=== PATIENT | female | born 1995 | race Two or more races ===

== ENCOUNTER 2016-08-16 11:37 | Emergency (ER) | payer OTHER ==
[~2016-08-16] VITALS: Ht 157.5 cm; Wt 60.0 kg
[~2016-08-16 11:37] MED LIST: ALBU17I INH; Z.0.NO CURRENT MEDS
[2016-08-16 11:42] VITALS: BP 122/75; PULSE 75; RESP 16; TEMP 98.1; O2SAT 98
--- NOTE | 2016-08-16 11:56 | PD ---
HPI Chief Complaint: Related Problem Time Seen by Provider: 11:56 Travel History International Travel<30 days: No Contact w/Intl Traveler<30days: No Traveled to known affect area: No History of Present Illness HPI 21-year-old female with no significant medical history presents to the emergency department for evaluation of lower abdominal cramping. Patient states she has been cramping for the last week or 2, expecting her menstrual cycle however it never came. She took a test yesterday was positive. She has been unable to get into her [employer] for 2 weeks and is concerned about the cramping. She states her last menstrual cycle was June 24, 2016 but it was not normal. She did have some spotting later last month. Denies any recent illnesses, fever, or chills. No constipation. No urinary symptoms. No other symptoms to report. PFSH Past Medical History ADHD: No Asthma: Yes Depression: Yes Cancer: No Cardiovascular Problems: Yes (HEART MURMOR) Diabetes: No Psychiatric: No Migraines: Yes (2 DAYS AGO AND THE WEEK PRIOR) Seizures: No Thyroid Disease: No Ulcer: No ?: LMP: 06/24/16 Social History Alcohol Use: No (RARE) Tobacco Use: Yes Substance Use: No Allergies-Medications (Allergen,Severity, Reaction): Coded Allergies: No Known Allergies (Verified , 08/16/16) Reported Meds & Prescriptions Reported Meds & Active Scripts Active No Active Prescriptions or Reported Medications Review of Systems Except as stated in HPI: all other systems reviewed are Neg Physical Exam Narrative GENERAL: Well-nourished female patient, in no acute distress SKIN: Warm and dry. HEAD: Atraumatic. Normocephalic. EYES: Pupils equal and round. No scleral icterus. No injection or drainage. ENT: No nasal bleeding or discharge. Mucous membranes pink and moist. NECK: Trachea midline. No JVD. CARDIOVASCULAR: Regular rate and rhythm. No murmur appreciated. RESPIRATORY: No accessory muscle use. Clear to auscultation. Breath sounds equal bilaterally. GASTROINTESTINAL: Abdomen soft, nondistended. Mild mid suprapubic tenderness to palpation. Hepatic and splenic margins not palpable. MUSCULOSKELETAL: No obvious deformities. No clubbing. No cyanosis. No edema. NEUROLOGICAL: Awake and alert. No obvious cranial nerve deficits. Motor grossly within normal limits. Normal speech. PSYCHIATRIC: Appropriate mood and affect; insight and judgment normal. Data Data Last Documented VS Vital Signs Date Time Temp Pulse Resp B/P Pulse Ox O2 Delivery O2 Flow Rate FiO2 08/16/16 11:42 98.1 75 16 122/75 98 Orders Basic Metabolic Panel (Bmp) (08/16/16 11:56) Beta Hcg (Quant/Titer) (08/16/16 11:56) Complete Blood Count With Diff (08/16/16 11:56) Prothrombin Time / Inr (Pt) (08/16/16 11:56) Act Partial Throm Time (Ptt) (08/16/16 11:56) Urinalysis - C+S If Indicated (08/16/16 11:56) Ed Urine Pregnancytest Poc (08/16/16 11:56) Type And Screen (08/16/16 11:56) Us Pelvis (Ques Pr/Ect)W Trans (08/16/16 ) Labs Laboratory Tests Test 08/16/16 12:05 White Blood Count 12.0 TH/MM3 Red Blood Count 4.38 MIL/MM3 Hemoglobin 13.5 GM/DL Hematocrit 37.6 % Mean Corpuscular Volume 85.9 FL Mean Corpuscular Hemoglobin 30.8 PG Mean Corpuscular Hemoglobin 35.9 % Concent Red Cell Distribution Width 13.4 % Platelet Count 174 TH/MM3 Mean Platelet Volume 8.9 FL Neutrophils (%) (Auto) 71.0 % Lymphocytes (%) (Auto) 19.4 % Monocytes (%) (Auto) 7.9 % Eosinophils (%) (Auto) 1.5 % Basophils (%) (Auto) 0.2 % Neutrophils # (Auto) 8.5 TH/MM3 Lymphocytes # (Auto) 2.3 TH/MM3 Monocytes # (Auto) 0.9 TH/MM3 Eosinophils # (Auto) 0.2 TH/MM3 Basophils # (Auto) 0.0 TH/MM3 CBC Comment DIFF FINAL Differential Comment MDM Medical Decision Making Medical Screen Exam Complete: Yes Emergency Medical Condition: Yes Medical Record Reviewed: Yes Differential Diagnosis intrauterine versus ectopic versus threatened versus missed versus UTI his renal calculi versus PID versus STD Narrative Course 21-year-old female presents to the emergency department for evaluation. Patient appears without distress. Workup was initiated in triage. Once a medical bed becomes available, patient will be transferred and care assumed by that provider. Scripts No Active Prescriptions or Reported Meds Condition: Stable Cro[place]ett,[place] [employer]PER[employer] Aug 16, 2016 11:56
[2016-08-16 12:23] LABS: AUTOMATED NEUTROPHIL # 8.5 TH/MM3 (1.8-7.7); BASOPHIL % 0.2 % (0.0-2.0); EOSINOPHIL # 0.2 TH/MM3 (0-0.4); EOSINOPHIL % 1.5 % (0.0-4.0); HEMATOCRIT 37.6 % (35.0-46.0); HEMO FLAGS DIFF FINAL; LYMPH % 19.4 % (9.0-44.0); LYMPHOCYTE # 2.3 TH/MM3 (1.0-4.8); MEAN CELL VOLUME 85.9 FL (80.0-100.0); MEAN CORPUSCULAR HEMOGLOBIN 30.8 PG (27.0-34.0); MEAN CORPUSCULAR HGB CONC 35.9 % (32.0-36.0); MONO % 7.9 % (0.0-8.0); PLATELET COUNT 174 TH/MM3 (150-450); RED BLOOD COUNT 4.38 MIL/MM3 (4.00-5.30); RED CELL DISTRIBUTION WIDTH 13.4 % (11.6-17.2)
[2016-08-16 12:32] LABS: BACTERIA, URINE RARE /hpf; BLOOD, URINE NEG (NEG); GLUCOSE,URINE NEG (NEG); KETONE, URINE TRACE mg/dL (NEG); MUCUS URINE MOD /lpf (OCC); NITRITE,URINE NEG (NEG); SQUAMOUS EPITHELIAL CELL URINE 5 /hpf (0-5); URINE COLOR YELLOW (YELLW/STRAW)
[2016-08-16 12:38] LABS: APTT (PATIENT) 30.2 SEC (24.3-30.1); INTERNATIONAL NORMALIZED RATIO 1.1 RATIO; PROTHROMBIN TIME - PATIENT 11.9 SEC (9.8-11.6)
[2016-08-16 12:40] LABS: BICARBONATE 24.4 MEQ/L (21.0-32.0); POTASSIUM 3.5 MEQ/L (3.5-5.1)
--- NOTE | 2016-08-16 12:41 | PD ---
Physical Exam Time Seen by Provider: 12:41 Narrative 21-year-old female resisted the emergency department for evaluation of lower abdominal cramping for one week. Patient seen by provider in triage who initiated workup, please see her documentation. The patient states she's had lower abdominal cramping for one week. States that she is unsure when her last full menstrual cycle was, thinks it may have been May. She does remember having an episode of heavy bleeding June 24 after taking Plan B. States that she realized her cycle is late and she was having cramping she took a test at home yesterday which was positive. States that she's come in for evaluation for abdominal cramping and . She is 2 para 1. States that the last spotting she had was one month ago. Denies any fever, chills, nausea, vomiting, vaginal discharge, burning with urination, painful urination, diarrhea, constipation. States she is sexually active with one person that does not use a condom. States that she has taken Plan B 3 times recently, once at the end of May and twice in the month of June. Denies any prior abdominal surgeries. No other complaints. GENERAL: Well-nourished and well-developed pleasant patient in no acute distress who is nontoxic appearing. SKIN: Warm and dry. HEAD: Normocephalic and atraumatic. EYES: No injection, drainage, or hyphema noted. PERRLA. EOMI. ENT: No nasal drainage noted. Oropharynx is clear. NECK: Supple and the trachea is midline. CARDIOVASCULAR: Regular rate and rhythm. RESPIRATORY: Breath sounds are equal bilaterally with no accessory muscle use, wheezing, rhonchi, or crackles. GASTROINTESTINAL: Mild suprapubic tenderness to palpation. Abdomen is soft, non -tender, and nondistended. GENITOURINARY: Patient refused. MUSCULOSKELETAL: No obvious deformities, swelling, cyanosis, or ecchymosis is present throughout the upper and lower extremities. Patient has full range of motion without any signs of neurovascular compromise. NEUROLOGICAL: Awake, alert, and oriented. Normal speech and gait. Cranial nerves are grossly intact. Data Data Last Documented VS Vital Signs Date Time Temp Pulse Resp B/P Pulse Ox O2 Delivery O2 Flow Rate FiO2 08/16/16 11:42 98.1 75 16 122/75 98 Orders Basic Metabolic Panel (Bmp) (08/16/16 11:56) Beta Hcg (Quant/Titer) (08/16/16 11:56) Complete Blood Count With Diff (08/16/16 11:56) Prothrombin Time / Inr (Pt) (08/16/16 11:56) Act Partial Throm Time (Ptt) (08/16/16 11:56) Urinalysis - C+S If Indicated (08/16/16 11:56) Ed Urine Pregnancytest Poc (08/16/16 11:56) Type And Screen (08/16/16 11:56) Us Pelvis (Ques Pr/Ect)W Trans (08/16/16 ) Gc And Chlamydia Pcr (08/16/16 12:34) Labs Laboratory Tests Test 08/16/16 08/16/16 12:00 12:05 Urine Color YELLOW Urine Turbidity CLEAR Urine pH 6.0 Urine Specific [place] 1.022 Urine Protein NEG mg/dL Urine Glucose (UA) NEG mg/dL Urine Ketones TRACE mg/dL Urine Occult Blood NEG Urine Nitrite NEG Urine Bilirubin NEG Urine Urobilinogen LESS THAN 2.0 MG/DL Urine Leukocyte Esterase NEG Urine RBC 1 /hpf Urine WBC 1 /hpf Urine Squamous Epithelial 5 /hpf Cells Urine Bacteria RARE /hpf Urine Mucus MOD /lpf Microscopic Urinalysis Comment CULT NOT INDICATED White Blood Count 12.0 TH/MM3 Red Blood Count 4.38 MIL/MM3 Hemoglobin 13.5 GM/DL Hematocrit 37.6 % Mean Corpuscular Volume 85.9 FL Mean Corpuscular Hemoglobin 30.8 PG Mean Corpuscular Hemoglobin 35.9 % Concent Red Cell Distribution Width 13.4 % Platelet Count 174 TH/MM3 Mean Platelet Volume 8.9 FL Neutrophils (%) (Auto) 71.0 % Lymphocytes (%) (Auto) 19.4 % Monocytes (%) (Auto) 7.9 % Eosinophils (%) (Auto) 1.5 % Basophils (%) (Auto) 0.2 % Neutrophils # (Auto) 8.5 TH/MM3 Lymphocytes # (Auto) 2.3 TH/MM3 Monocytes # (Auto) 0.9 TH/MM3 Eosinophils # (Auto) 0.2 TH/MM3 Basophils # (Auto) 0.0 TH/MM3 CBC Comment DIFF FINAL Differential Comment Prothrombin Time 11.9 SEC Prothromb Time International 1.1 RATIO Ratio Activated Partial 30.2 SEC Thromboplast Time Sodium Level 138 MEQ/L Potassium Level 3.5 MEQ/L Chloride Level 106 MEQ/L Carbon Dioxide Level 24.4 MEQ/L Anion Gap 8 MEQ/L Blood Urea Nitrogen 8 MG/DL Creatinine 0.74 MG/DL Estimat Glomerular Filtration 97 ML/MIN Rate Random Glucose 81 MG/DL Calcium Level 9.0 MG/DL Human Chorionic Gonadotropin, 3483 MIU/ML Quant Blood Type A POSITIVE Antibody Screen NEGATIVE Blood Bank Comment [facility] Supervised Visit with REGULO: No Differential Diagnosis Early versus ectopic versus STI versus UTI Narrative Course 21-year-old female presents to the emergency department for evaluation of lower abdominal cramping and . Patient is afebrile, vital signs are stable. On physical exam she has some very mild suprapubic tenderness but overall abdominal examination is benign. I recommended that we perform a pelvic examination to evaluate for any evidence of pelvic inflammatory disease or other causes of a cramping. The patient verbalizes understanding but refuses pelvic examination. She agrees to laboratory testing and ultrasound imaging. She is really unsure of her last menstrual period and could be anywhere from 7- 12 weeks based on the possible dates she is giving me of her last period. Blood type is A+. Patient does not require RhoGAM. CBC is unremarkable. BMP is unremarkable. Urinalysis shows rare bacteria, moderate mucus. No evidence of infection. Beta hcg is 3483. Patient is refusing pelvic exam and ultrasound imaging. States she is planning to get an of this and does not want to see the ultrasound. I did discuss with her that we need ultrasound to rule out ectopic and she could have a life threatening illness. She verbalizes understanding but is still going to leave AGAINST MEDICAL ADVICE. AMA: The risks of leaving against medical advice without further evaluation treatment were discussed with the patient. These risks include cardiac dysfunction, cardiac dysrhythmia, possible heart attack, possible stroke or . The patient indicated understanding of these risks and appeared to have the capacity to make this decision. Diagnosis Primary Impression: Left against medical advice Additional Impressions: Qualified Code: Z33.1 - , unspecified gestational age Pelvic cramping Additional Instruction: You left against medical advice. We wanted to do an ultrasound to rule out an ectopic . This could be life threatening. Please return for any worsening of pain, bleeding, or other symptoms. You can return to the emergency room at any time. Scripts No Active Prescriptions or Reported Meds Disposition: 07 AGAINST MEDICAL ADVICE Edyta Ibarra Aug 16, 2016 12:41
[2016-08-16 12:42] LABS: COMMENT (UR) CULT NOT INDICATED; CULTURE IF INDICATED CULT NOT INDICATED
[2016-08-16 16:58] LABS: CHLAMYDIA PCR NOT DETECTED (NOT DETECT); NEISSERIA PCR NOT DETECTED (NOT DETECT)
== END 2016-08-16 13:00 | disposition left against medical advice (07) ==
LOC: NEPA 11:37
DX: O26.899 Other specified pregnancy related conditions, unspecified trimester (principal); Z72.0 Tobacco use; R10.2 Pelvic and perineal pain; Z3A.00 Weeks of gestation of pregnancy not specified
CPT/HCPCS: 80048; 81001; 84702; 84703; 85025; 85610; 85730; 86850; 86900; 86901; 87491; 87591